=== PATIENT | male | born 1960 | race Caucasian/White ===

== ENCOUNTER 2021-10-06 11:20 | Day surgery (SDC) | payer MEDICARE, MEDICAID ==
[2021-10-01 10:41] LABS: BASOPHILS % (AUTO) 0.4 % (0-1); EOSINOPHILS # (AUTO) 0.5 X10'3 (0-0.9); EOSINOPHILS % (AUTO) 4.6 % (0-6); HEMATOCRIT 37.4 % (42.0-52.0); LYMPHOCYTES # (AUTO) 2.7 X10'3 (1.1-4.8); LYMPHOCYTES % (AUTO) 27.3 % (21-51); MEAN CORPUSCULAR HEMOGLOBIN 29.5 PG (27.0-31.0); MEAN CORPUSCULAR HGB CONC 34.8 g/dL (33.0-36.5); MEAN CORPUSCULAR VOLUME 84.8 FL (78-98); MEAN PLATELET VOLUME 7.5 FL (7.4-10.4); MONOCYTES # (AUTO) 0.8 X10'3 (0-0.9); NEUTROPHILS % (AUTO) 59.7 % (42-75); PLATELET COUNT 344 X10'3 (140-440); RED BLOOD COUNT 4.41 X10'6 (4.70-6.10); RED CELL DISTRIBUTION WIDTH 14.1 % (11.5-14.5); WHITE BLOOD COUNT 10.1 X10'3 (4.5-11.0)
[2021-10-01 10:49] LABS: ALBUMIN 3.4 G/DL (3.4-5.0); ANION GAP 10 (8-16); BLOOD UREA NITROGEN 18 MG/DL (7-18); BUN/CREATININE RATIO 11.8 (5.4-32.0); CALCIUM 8.7 MG/DL (8.5-10.1); CHLORIDE 100 MMOL/L (99-107); CREATININE 1.53 MG/DL (0.60-1.10); GLUCOSE 147 MG/DL (70-104); POTASSIUM 5.2 MMOL/L (3.5-5.1); SODIUM 135 MMOL/L (135-145); TOTAL CARBON DIOXIDE 25.1 MMOL/L (24-32); eGFR 47 ML/MIN
[2021-10-01 10:52] LABS: PARTIAL THROMBOPLASTIN TIME 28 SECONDS (22-32)
[~2021-10-06] VITALS: Ht 170.2 cm; Wt 71.1 kg
[2021-10-06] VITALS (9 sets, daily range): BP systolic 111–160; BP diastolic 70–104
[~2021-10-06 11:20] MED LIST: ASPI81TA30 PO; ATOR-2 PO; BUPR-72 PO; CLOP75TA33 PO; FENO145T25 PO; ISOS30TA84 PO; LISI5TAB22 PO; MAGN400T56 PO; METF-436 PO; METO25TA6 PO; PANT20TA18 PO; TIOT18CA3 INH
[2021-10-06] MEDS ORDERED: midazolam 1 mg/ML 2ml injection ONE (12:02)
[2021-10-06] MEDS ORDERED: nitroGLYCERIN-Tridil 50MG/D5W 250 ML IV ONE (12:03)
[2021-10-06] MEDS ORDERED: fentaNYL/PF 50MCG/1 ML 2ML syringe ONE (12:03)
[2021-10-06] MEDS ORDERED: LIDOcaine 1% (10mg/ml)w/preservative injection 20ml MDV ONE (12:03)
[2021-10-06] MEDS ORDERED: iohexol 350MG/ML 100ml bottle IV ONE ×2 (12:03→13:56)
[2021-10-06] MEDS ORDERED: heparin 1,000unit/ml 10ml vial 10 ML ONE (12:03)
[2021-10-06] MEDS ORDERED: LIDOcaine/PRILOcaine 5gm cream TP ONE (12:05)
[2021-10-06] MEDS ORDERED: LORazepam 0.5 MG tablet PO PRN (12:05)
[2021-10-06] MEDS ORDERED: normal saline 1,000 ML IV SCH (12:05)
[2021-10-06] MEDS ORDERED: diphenhydrAMINE 25mg capsule PO PRN (12:05)
[2021-10-06] MEDS ORDERED: verapamil 2.5 mg/ml inj IV ONE (12:08)
[2021-10-06] MEDS ORDERED: ticagrelor 90mg tablet ONE (14:11)
[2021-10-06] MEDS ORDERED: ondansetron/PF 4mg/2ml inj IV PRN (14:50)
[2021-10-06] MEDS ORDERED: HYDROcodone/acetaminophen 5mg/325mg tablet PO PRN (14:50)
[2021-10-06] MEDS ORDERED: proCHLORperazine 10 MG/2 ml inj IV PRN (14:50)
[2021-10-06] MEDS ORDERED: OXAZEpam 15mg capsule PO PRN (14:50)
[2021-10-06] MEDS ORDERED: HYDROcodone/acetaminophen 10/325mg tab PO PRN (14:50)
== END 2021-10-06 18:55 | disposition home or self-care (01) ==
LOC: SSTAY O 11:20
PROVIDERS: ATTEND Internal Medicine Interventional Cardiology
DX: R07.89 Other chest pain (principal); I25.10 Atherosclerotic heart disease of native coronary artery without angina pectoris; E11.9 Type 2 diabetes mellitus without complications; G47.33 Obstructive sleep apnea (adult) (pediatric); I10 Essential (primary) hypertension; F17.210 Nicotine dependence, cigarettes, uncomplicated; K21.9 Gastro-esophageal reflux disease without esophagitis; Z86.73 Personal history of transient ischemic attack (TIA), and cerebral infarction without residual deficits; Z79.01 Long term (current) use of anticoagulants; Z79.84 Long term (current) use of oral hypoglycemic drugs; Z79.82 Long term (current) use of aspirin; Z79.899 Other long term (current) drug therapy; Z95.5 Presence of coronary angioplasty implant and graft
CPT/HCPCS: 36415; 80048; 85025; 85610; 85730; 93005; 93458; 99152; 99153; C1725; C1751; C1769; C1874; C1894; C9600; J1644; J2001; J2250; J3010; J7030; Q0163; Q9967; A4620; A5120; J3490

== ENCOUNTER 2023-01-20 08:25 | Outpatient (CLI) | payer BC, MEDICAID ==
[~2023-01-20 08:25] MED LIST changes: +ALBU18HF2 INH; +AMLO1CAP23 PO; -BUPR-72 PO; -CLOP75TA33 PO; +GABA-530 PO; +HYDR-3972 PO; -LISI5TAB22 PO; -METF-436 PO; -METO25TA6 PO; +NITR0.4T48 SL; +TICA90TA2 PO; -TIOT18CA3 INH
[2023-01-20 09:11] LABS: ALBUMIN 3.2 G/DL (3.4-5.0); ANION GAP 8 (8-16); BLOOD UREA NITROGEN 21 MG/DL (7-18); BUN/CREATININE RATIO 15.2 (5.4-32.0); CALCIUM 8.2 MG/DL (8.5-10.1); CHLORIDE 103 MMOL/L (99-107); CREATININE 1.38 MG/DL (0.60-1.10); GLUCOSE 103 MG/DL (70-104); POTASSIUM 4.6 MMOL/L (3.5-5.1); SODIUM 136 MMOL/L (135-145); TOTAL CARBON DIOXIDE 25.2 MMOL/L (24-32); eGFR 52 ML/MIN
[2023-01-20] MEDS ORDERED: iohexol 350 MG/ML 50ML vial IV ONE (09:12)
[2023-01-20] MEDS ORDERED: iohexol 350MG/ML 100ml bottle IV ONE (09:12)
[2023-01-20] MEDS ORDERED: MESSAGE TO NURSING PO NR (09:30)
== END 2023-01-20 23:59 | disposition home or self-care (01) ==
LOC: RAD 08:25
PROVIDERS: ATTEND Internal Medicine Interventional Cardiology
DX: I70.213 Atherosclerosis of native arteries of extremities with intermittent claudication, bilateral legs (principal); I10 Essential (primary) hypertension; R06.02 Shortness of breath; E78.5 Hyperlipidemia, unspecified; I70.0 Atherosclerosis of aorta; I51.7 Cardiomegaly; K80.20 Calculus of gallbladder without cholecystitis without obstruction
CPT/HCPCS: 36415; 75635; 80048; J3490; Q9967

== ENCOUNTER 2023-02-09 18:43 | Emergency (ER) | payer BC, MEDICAID ==
[~2023-02-09] VITALS: Ht 170.2 cm; Wt 70.0 kg
[2023-02-09] MEDS ORDERED: normal saline 1000ML IV soln IV ONE (19:40)
[2023-02-09 20:02] LABS: BASOPHILS # (AUTO) 0.1 X10'3 (0-0.2); BASOPHILS % (AUTO) 0.5 % (0-1); EOSINOPHILS # (AUTO) 0.2 X10'3 (0-0.9); EOSINOPHILS % (AUTO) 1.6 % (0-6); HEMATOCRIT 32.8 % (42.0-52.0); HEMOGLOBIN 10.3 g/dl (14.0-17.9); LYMPHOCYTES # (AUTO) 1.8 X10'3 (1.1-4.8); LYMPHOCYTES % (AUTO) 13.6 % (21-51); MEAN CORPUSCULAR HEMOGLOBIN 26.9 PG (27.0-31.0); MEAN CORPUSCULAR HGB CONC 31.5 g/dL (33.0-36.5); MEAN CORPUSCULAR VOLUME 85.4 FL (78-98); MEAN PLATELET VOLUME 7.4 FL (7.4-10.4); MONOCYTES # (AUTO) 0.8 X10'3 (0-0.9); MONOCYTES % (AUTO) 6.3 % (2-12); NEUTROPHILS # (AUTO) 10.4 X10'3 (1.8-7.7); PLATELET COUNT 345 X10'3 (140-440); RED BLOOD COUNT 3.84 X10'6 (4.70-6.10); RED CELL DISTRIBUTION WIDTH 16.3 % (11.5-14.5); WHITE BLOOD COUNT 13.3 X10'3 (4.5-11.0)
[2023-02-09 20:17] LABS: ALANINE AMINOTRANSFERASE 16 U/L (12-78); ALBUMIN/GLOBULIN RATIO 0.8 (1.1-1.5); ALKALINE PHOSPHATASE 97 IU/L (46-116); ANION GAP 12 (8-16); ASPARTATE AMINO TRANSFERASE 17 U/L (10-37); BILIRUBIN,TOTAL 0.2 MG/DL (0.1-1.0); BLOOD UREA NITROGEN 24 MG/DL (7-18); BUN/CREATININE RATIO 6.2 (5.4-32.0); CALCIUM 8.1 MG/DL (8.5-10.1); CHLORIDE 104 MMOL/L (99-107); CREATININE 3.88 MG/DL (0.60-1.10); GLUCOSE 105 MG/DL (70-104); MAGNESIUM 1.4 MG/DL (1.5-2.4); SODIUM 139 MMOL/L (135-145); TOTAL CARBON DIOXIDE 23.3 MMOL/L (24-32); TOTAL PROTEIN 6.9 G/DL (6.4-8.2); eGFR 16 ML/MIN
--- NOTE | 2023-02-09 23:02 | NUR ---
Pt sister, Susan Marin called who has POA over medical care of pt. Contact # Susan Marin [phone]
[2023-02-09] MEDS ORDERED: magnesium 4gm in 100ml NS 100 ML IV ONE (23:15)
[2023-02-10 00:54] LABS: ETHANOL < 0.010 GM/DL (0.0-0.010)
[2023-02-10 02:30] VITALS: BP 110/62
== END 2023-02-10 02:31 | disposition home or self-care (01) ==
LOC: ER 18:43
DX: I95.9 Hypotension, unspecified (principal); E86.0 Dehydration; I11.0 Hypertensive heart disease with heart failure; E78.00 Pure hypercholesterolemia, unspecified; K21.9 Gastro-esophageal reflux disease without esophagitis; E11.9 Type 2 diabetes mellitus without complications; V89.2XXA Person injured in unspecified motor-vehicle accident, traffic, initial encounter; Y93.89 Activity, other specified; Y92.89 Other specified places as the place of occurrence of the external cause; Y99.8 Other external cause status
CPT/HCPCS: 36415; 71045; 80053; 80320; 82948; 83735; 85025; 86885; 86900; 86901; 96361; 96365; 96366; 99285; J3475; J7030

== ENCOUNTER 2023-03-03 18:03 | Inpatient (IN) | payer BC, MEDICAID ==
[~2023-03-03] VITALS: Ht 170.2 cm; Wt 68.2 kg
[2023-03-03] MEDS ORDERED: normal saline 1000ML IV soln IV ONE (18:35)
[2023-03-03 19:16] LABS: BASOPHILS # (AUTO) 0.1 X10'3 (0-0.2); EOSINOPHILS # (AUTO) 0.2 X10'3 (0-0.9); EOSINOPHILS % (AUTO) 1.5 % (0-6); HEMOGLOBIN 11.3 g/dl (14.0-17.9); LYMPHOCYTES # (AUTO) 1.6 X10'3 (1.1-4.8); LYMPHOCYTES % (AUTO) 12.9 % (21-51); MEAN CORPUSCULAR HGB CONC 32.4 g/dL (33.0-36.5); MEAN CORPUSCULAR VOLUME 83.3 FL (78-98); MEAN PLATELET VOLUME 7.5 FL (7.4-10.4); MONOCYTES # (AUTO) 0.9 X10'3 (0-0.9); MONOCYTES % (AUTO) 7.5 % (2-12); NEUTROPHILS # (AUTO) 9.5 X10'3 (1.8-7.7); NEUTROPHILS % (AUTO) 77.1 % (42-75); PLATELET COUNT 336 X10'3 (140-440); RED CELL DISTRIBUTION WIDTH 16.5 % (11.5-14.5); WHITE BLOOD COUNT 12.4 X10'3 (4.5-11.0)
[2023-03-03 19:30] LABS: ALANINE AMINOTRANSFERASE 16 U/L (12-78); ALBUMIN 2.7 G/DL (3.4-5.0); ALBUMIN/GLOBULIN RATIO 0.7 (1.1-1.5); ALKALINE PHOSPHATASE 121 IU/L (46-116); ANION GAP 7 (8-16); ASPARTATE AMINO TRANSFERASE 18 U/L (10-37); BILIRUBIN,TOTAL 0.4 MG/DL (0.1-1.0); BLOOD UREA NITROGEN 13 MG/DL (7-18); BUN/CREATININE RATIO 9.6 (10.0-20.0); CHLORIDE 106 MMOL/L (99-107); CREATININE 1.35 MG/DL (0.60-1.10); GLUCOSE 109 MG/DL (70-104); POTASSIUM 3.7 MMOL/L (3.5-5.1); SODIUM 141 MMOL/L (135-145); TOTAL CARBON DIOXIDE 27.9 MMOL/L (24-32); TOTAL PROTEIN 6.6 G/DL (6.4-8.2); eGFR 54 ML/MIN
[2023-03-03 19:34] LABS: MAGNESIUM 1.3 MG/DL (1.5-2.4)
[2023-03-03 19:36] LABS: PLATELET ESTIMATE NORMAL
[2023-03-03 19:37] LABS: ELLIPTOCYTES FEW; SCHISTOCYTES FEW; TEAR DROP CELLS FEW
[2023-03-03] MEDS ORDERED: magnesium hydroxide 30ml (MOM) UD suspension PO PRN (20:05)
[2023-03-03] MEDS ORDERED: magnesium 4gm in 100ml NS 100 ML IV PRN (20:05)
[2023-03-03] MEDS ORDERED: HYDROcodone/acetaminophen 5mg/325mg tablet PO PRN (20:05)
[2023-03-03] MEDS ORDERED: acetaminophen 325mg tablet PO PRN (20:05)
[2023-03-03] MEDS ORDERED: diphenhydrAMINE 25mg capsule PO PRN (20:05)
[2023-03-03] MEDS ORDERED: mag hydrox/Alum hydrox/simeth 30ml oral suspension PO PRN (20:05)
[2023-03-03] MEDS ORDERED: ondansetron/PF 4mg/2ml inj IV PRN (20:05)
[2023-03-03] MEDS ORDERED: potassium Cl 40MEQ/1/2NS 520ml 520 ML IV PRN (20:05)
[2023-03-03] MEDS ORDERED: potassium Cl 20 mEq SR tablet PO PRN ×2 (20:05)
[2023-03-03] MEDS ORDERED: magnesium Cl slow-release 64mg tablet PO PRN (20:05)
[2023-03-03] MEDS: potassium cl 20mEq in 1/2 NS 1,000 ML IV SCH (21:21)
[2023-03-03] MEDS ORDERED: CefTRIAXone/D5W-Rocephin 1gm 50 ML IV SCH (22:00)
[2023-03-03] MEDS ORDERED: CefTRIAXone/D5W-Rocephin 1gm 50 ML IV ONE (23:45)
[2023-03-04 02:09] LABS: BASOPHILS # (AUTO) 0.1 X10'3 (0-0.2); BASOPHILS % (AUTO) 0.7 % (0-1); EOSINOPHILS # (AUTO) 0.3 X10'3 (0-0.9); EOSINOPHILS % (AUTO) 3.2 % (0-6); HEMATOCRIT 32.3 % (42.0-52.0); HEMOGLOBIN 10.5 g/dl (14.0-17.9); LYMPHOCYTES # (AUTO) 2.5 X10'3 (1.1-4.8); LYMPHOCYTES % (AUTO) 28.6 % (21-51); MEAN CORPUSCULAR HEMOGLOBIN 26.9 PG (27.0-31.0); MEAN CORPUSCULAR HGB CONC 32.4 g/dL (33.0-36.5); MEAN PLATELET VOLUME 7.5 FL (7.4-10.4); MONOCYTES # (AUTO) 0.9 X10'3 (0-0.9); NEUTROPHILS # (AUTO) 5.1 X10'3 (1.8-7.7); NEUTROPHILS % (AUTO) 57.5 % (42-75); PLATELET COUNT 303 X10'3 (140-440); RED BLOOD COUNT 3.89 X10'6 (4.70-6.10); RED CELL DISTRIBUTION WIDTH 16.7 % (11.5-14.5); WHITE BLOOD COUNT 8.9 X10'3 (4.5-11.0)
[2023-03-04 02:23] LABS: ALANINE AMINOTRANSFERASE 17 U/L (12-78); ALBUMIN 2.5 G/DL (3.4-5.0); ALBUMIN/GLOBULIN RATIO 0.7 (1.1-1.5); ALKALINE PHOSPHATASE 107 IU/L (46-116); ANION GAP 7 (8-16); ASPARTATE AMINO TRANSFERASE 13 U/L (10-37); BILIRUBIN,TOTAL 0.2 MG/DL (0.1-1.0); BLOOD UREA NITROGEN 12 MG/DL (7-18); BUN/CREATININE RATIO 10.1 (10.0-20.0); CALCIUM 7.5 MG/DL (8.5-10.1); CHLORIDE 108 MMOL/L (99-107); CREATININE 1.19 MG/DL (0.60-1.10); GLUCOSE 120 MG/DL (70-104); MAGNESIUM 1.2 MG/DL (1.5-2.4); SODIUM 142 MMOL/L (135-145); TOTAL CARBON DIOXIDE 26.8 MMOL/L (24-32); TOTAL PROTEIN 6.1 G/DL (6.4-8.2); eGFR 62 ML/MIN
[2023-03-04 02:30] LABS: CLARITY,URINE CLEAR (Clear); COLOR,URINE YELLOW (Yellow); GLUCOSE, URINE NEGATIVE (Neg); KETONES,URINE NEGATIVE (Neg); LEUKOCYTE ESTERASE ,URINE NEGATIVE (Neg); NITRITES, URINE NEGATIVE (Neg); OCCULT BLOOD,URINE NEGATIVE (Neg); PROTEIN,URINE 100 mg/dl (Neg); UROBILINOGEN,URINE 0.2 E.U/dL (0.2-1.0)
[2023-03-04 02:34] LABS: UA COLLECTION TYPE CLN CATCH MIDSTREAM
[2023-03-04 02:35] LABS: MUCUS STRANDS FEW /LPF (Neg)
[2023-03-04 02:36] LABS: BACTERIA,URINE NONE SEEN /HPF (Neg); SPERM FEW /HPF (NEGATIVE); SQUAMOUS EPITHELIAL CELL,UR MODERATE /LPF (FEW)
[2023-03-04 02:37] LABS: RBC,URINE 0-2 /HPF (0-2); WBC,URINE 0-4 /HPF (0-4)
[2023-03-04] MEDS ORDERED: enoxaparin 40mg/0.4ml syringe SUBCUT SCH (08:00)
[2023-03-04] MEDS: potassium cl 20mEq in 1/2 NS 1,000 ML IV SCH ×2 (08:00→16:05)
[2023-03-04] MEDS: K and/or MAG REPLACEMENT MC SCH ×2 (08:00→19:06)
[2023-03-04] MEDS: CefTRIAXone/D5W-Rocephin 1gm 50 ML IV SCH (08:13)
[2023-03-04] MEDS: docusate sod 100mg capsule PO SCH ×2 (09:32→19:12)
--- NOTE | 2023-03-04 12:09 | NUR ---
tech left pt tray on pt bedside table, pt sleeping.
[2023-03-04] MEDS ORDERED: ASPI-1397 PO (13:14)
[2023-03-04] MEDS ORDERED: RIVA2.5T PO (13:14)
[2023-03-04] MEDS ORDERED: AMLO-139 PO (13:14)
[2023-03-04] MEDS ORDERED: nitroGLYCERIN 0.4mg SUBLingual tab SL PRN (14:35)
[2023-03-04] MEDS ORDERED: gabapentin 100mg capsule PO PRN (14:35)
[2023-03-04] MEDS ORDERED: albuterol 2.5 MG/3 ML nebule NEB PRN (14:35)
[2023-03-04] MEDS: isosorbide mononitrate 30mg tab.SR.24H PO SCH (14:53)
[2023-03-04] MEDS: fenofibrate 145mg tablet PO SCH (14:53)
[2023-03-04] MEDS: aspirin 81mg, enteric-coated 1 TAB TABLET.DR PO SCH (14:54)
--- NOTE | 2023-03-04 17:03 | NUR ---
Patient in room ED 9. I have received report from Emiliana HAIR and had the opportunity to ask questions and assume patient care.
--- NOTE | 2023-03-04 17:04 | NUR ---
REPORT CALLED TO JÚNIOR HAIR AT THIS TIME. THE ROOM IS NOT QUITE CLEAN YET AND SHE REQUESTED WE GIVE HER FIVE MINUTES FOR THE ORNAMENTER HAND TO FINISH CLEANING ROOM.
--- NOTE | 2023-03-04 17:13 | NUR ---
PAGER ID: [phone] MESSAGE: Yovany Delgado [phone] A: May we change diet to Control Carb from Regular? Pt has Hx of DB.
[2023-03-04 18:00] VITALS: BP 145/78
--- NOTE | 2023-03-04 18:24 | NUR ---
Problems reprioritized. Patient report given, questions answered & plan of care reviewed with Edd HAIR.
[2023-03-04] MEDS: rivaroxaban 10mg tablet PO SCH (19:36)
[2023-03-04 22:18] VITALS: BP 210/108
[2023-03-04] MEDS ORDERED: amLODIPine 5mg tablet PO STA (22:32)
[2023-03-04] MEDS: lisinopril 20mg tablet PO SCH (22:44)
[2023-03-05 00:15] VITALS: BP 171/89
[2023-03-05] MEDS: potassium cl 20mEq in 1/2 NS 1,000 ML IV SCH (01:40)
[2023-03-05 02:43] VITALS: BP 171/95
[2023-03-05] MEDS ORDERED: lisinopril 10 MG tablet PO STA (02:51)
--- NOTE | 2023-03-05 03:30 | NUR ---
MD Khan notified by phone that patient had hypertension at 2230. ordered a one time dose of 10mg of amlodipine and 20mg of lisinopril. Blood pressure was reduced and MD Khan notified of results. MD Khan notified by phone that patient had hypertension at 0253. ordered a one time dose of 10mg of lisinopril and RN administered it. RN will continue to monitor.
[2023-03-05 06:00] VITALS: BP 171/95
--- NOTE | 2023-03-05 06:47 | NUR ---
Patient in room PCU 3027N. I have received report from Edd HAIR and had the opportunity to ask questions and assume patient care. Pt is laying on L side of body in bed and is resting comfortably. Pt on RA. No s/s of distress, no s/s of pain at this time. BLL, call light wihtin reach, frequently used items in reach, frequent rounding, import and export clerk socks on. Will continue to monitor.
[2023-03-05] MEDS: fenofibrate 145mg tablet PO SCH (07:14)
[2023-03-05] MEDS: lisinopril 20mg tablet PO SCH (07:14)
[2023-03-05] MEDS: isosorbide mononitrate 30mg tab.SR.24H PO SCH (07:15)
[2023-03-05] MEDS: aspirin 81mg, enteric-coated 1 TAB TABLET.DR PO SCH (07:15)
[2023-03-05] MEDS: docusate sod 100mg capsule PO SCH (07:16)
[2023-03-05] MEDS: rivaroxaban 10mg tablet PO SCH (07:17)
[2023-03-05] MEDS: CefTRIAXone/D5W-Rocephin 1gm 50 ML IV SCH (07:17)
[2023-03-05 07:25] LABS: BASOPHILS % (AUTO) 0.5 % (0-1); EOSINOPHILS # (AUTO) 0.3 X10'3 (0-0.9); EOSINOPHILS % (AUTO) 4.1 % (0-6); HEMATOCRIT 34.4 % (42.0-52.0); HEMOGLOBIN 11.4 g/dl (14.0-17.9); LYMPHOCYTES # (AUTO) 2.1 X10'3 (1.1-4.8); LYMPHOCYTES % (AUTO) 27.9 % (21-51); MEAN CORPUSCULAR HEMOGLOBIN 26.9 PG (27.0-31.0); MEAN CORPUSCULAR HGB CONC 33.1 g/dL (33.0-36.5); MEAN CORPUSCULAR VOLUME 81.4 FL (78-98); MEAN PLATELET VOLUME 7.5 FL (7.4-10.4); MONOCYTES # (AUTO) 0.6 X10'3 (0-0.9); MONOCYTES % (AUTO) 8.5 % (2-12); NEUTROPHILS # (AUTO) 4.4 X10'3 (1.8-7.7); PLATELET COUNT 305 X10'3 (140-440); RED BLOOD COUNT 4.23 X10'6 (4.70-6.10); RED CELL DISTRIBUTION WIDTH 16.6 % (11.5-14.5); WHITE BLOOD COUNT 7.4 X10'3 (4.5-11.0)
[2023-03-05 07:38] LABS: ALANINE AMINOTRANSFERASE 21 U/L (12-78); ALBUMIN 2.7 G/DL (3.4-5.0); ALBUMIN/GLOBULIN RATIO 0.7 (1.1-1.5); ALKALINE PHOSPHATASE 118 IU/L (46-116); ANION GAP 6 (8-16); ASPARTATE AMINO TRANSFERASE 18 U/L (10-37); BILIRUBIN,TOTAL 0.3 MG/DL (0.1-1.0); BLOOD UREA NITROGEN 7 MG/DL (7-18); BUN/CREATININE RATIO 6.9 (10.0-20.0); CALCIUM 8.4 MG/DL (8.5-10.1); CHLORIDE 105 MMOL/L (99-107); CREATININE 1.01 MG/DL (0.60-1.10); GLUCOSE 116 MG/DL (70-104); MAGNESIUM 1.6 MG/DL (1.5-2.4); POTASSIUM 3.9 MMOL/L (3.5-5.1); SODIUM 140 MMOL/L (135-145); TOTAL CARBON DIOXIDE 28.7 MMOL/L (24-32); TOTAL PROTEIN 6.6 G/DL (6.4-8.2); eGFR 75 ML/MIN
[2023-03-05 08:00] VITALS: BP_SYST 126; BP_SYST 128; BP_SYST 150; BP_DIAS 68; BP_DIAS 78; BP_DIAS 88
[2023-03-05] MEDS ORDERED: amLODIPine 5mg tablet PO SCH (08:00)
[2023-03-05] MEDS ORDERED: pantoprazole 40mg Tablet.DR PO SCH (08:00)
[2023-03-05] MEDS ORDERED: atorvastatin 20mg tablet PO SCH (08:00)
[2023-03-05] MEDS ORDERED: magnesium oxide 400mg tablet PO SCH (08:00)
[2023-03-05] MEDS: K and/or MAG REPLACEMENT MC SCH (08:41)
[2023-03-05] MEDS ORDERED: LISI20TA28 PO (09:14)
[2023-03-05] MEDS ORDERED: NOR5T PO (09:14)
[2023-03-05 11:14] VITALS: BP 150/88
--- NOTE | 2023-03-05 11:22 | NUR ---
PAGER ID: [phone] MESSAGE: Yovany Chau [phone] A: + Orthostatic VS Lay 150/88 HR 82, Sit 126/68 HR 67, Stand 128/78, HR 88. -Lisa [phone] [id number]
[2023-03-05] MEDS ORDERED: ISOS10TA8 PO (14:29)
--- NOTE | 2023-03-05 15:00 | NUR ---
Pt DC'd to personal vehicle, neighbor is driving. VSS, pt afebrile, no s/s of hypo/hyperglycemia, no issues with medications. PIV to LFA removed, tip intact, no c/o pain with removal. Discharge education provided and all discharge questions answered. All belongings left with PT.
== END 2023-03-05 15:35 | disposition home or self-care (01) | DRG 312 ==
LOC: ER 18:03 → ED HOLD 20:09 → MED 3N 03-04 13:07 → ED HOLD 03-04 13:08 → PCU 3S 03-04 17:48
PROVIDERS: ADMIT Internal Medicine; ATTEND Internal Medicine
DX: I95.1 Orthostatic hypotension (principal); I24.8 Other forms of acute ischemic heart disease; E78.00 Pure hypercholesterolemia, unspecified; E78.1 Pure hyperglyceridemia; F17.200 Nicotine dependence, unspecified, uncomplicated; R77.8 Other specified abnormalities of plasma proteins; E86.0 Dehydration; I25.10 Atherosclerotic heart disease of native coronary artery without angina pectoris; I10 Essential (primary) hypertension; K21.9 Gastro-esophageal reflux disease without esophagitis; T46.3X5A Adverse effect of coronary vasodilators, initial encounter; E11.51 Type 2 diabetes mellitus with diabetic peripheral angiopathy without gangrene; J44.9 Chronic obstructive pulmonary disease, unspecified; Z79.01 Long term (current) use of anticoagulants; Z79.899 Other long term (current) drug therapy; Z82.49 Family history of ischemic heart disease and other diseases of the circulatory system; Z83.3 Family history of diabetes mellitus; Z86.73 Personal history of transient ischemic attack (TIA), and cerebral infarction without residual deficits; Z89.511 Acquired absence of right leg below knee; Z95.1 Presence of aortocoronary bypass graft; Z95.5 Presence of coronary angioplasty implant and graft; Z71.6 Tobacco abuse counseling; Z79.82 Long term (current) use of aspirin; Y92.89 Other specified places as the place of occurrence of the external cause
CPT/HCPCS: 36415; 71045; 80053; 81001; 82948; 83605; 83735; 84145; 84484; 85008; 85025; 87040; 87081; 93308; 97161; 97530; 99285; A6212; A6213; A6250; G0378; J0696; J1650; J3475; J3480; J7030; J7040